=== PATIENT | female | born 1965 | race African-American/Black ===

== ENCOUNTER 2022-11-23 08:39 | Outpatient (REF) | payer BC, SELFPAY ==
[2022-11-23 11:32] LABS: MANUAL DIFF FLAG NO
[2022-11-23 12:05] LABS: Basophils Absolute Auto 0.1 X10*3/uL (0.0-0.2); Eosinophils Absolute Auto 0.2 X10*3/uL (0.0-0.4); Eosinophils Percent Auto 2.5 % (0-4); Hematocrit 40.2 % (37.0-47.0); Imm Gran Abs Auto 0.01 X10*3/uL (0.00-0.03); Imm Gran Pct Auto 0.2 % (0.0-0.4); Lymphocytes Absolute Auto 1.9 X10*3/uL (1.2-4.9); Lymphocytes Percent Auto 31.9 % (20-40); Mean Corpuscular HGB Conc 32.3 g/dl (31.0-35.0); Mean Corpuscular Hemoglobin 28.4 pg (27.0-33.0); Mean Corpuscular Volume 87.8 fL (80.0-98.0); Mean Platelet Volume 10.8 fL (9.4-12.3); Monocytes Absolute Auto 0.4 X10*3/uL (0.1-1.2); Monocytes Percent Auto 6.9 % (2-11); Neutrophils Absolute Auto 3.4 x10*3/uL (2.0-8.3); Neutrophils Percent Auto 57.5 % (45-73); Platelet Count 342 X10*3/uL (160-400); Red Blood Count 4.58 X10*6/uL (4.20-5.50); Red Cell Distribution Width 13.9 % (11.0-16.0)
[2022-11-23 12:26] LABS: B Type Natriuretic Peptide < 10 pg/mL (<100)
[2022-11-23 12:46] LABS: Alanine Aminotransferase 15 U/L (0-31); Albumin Level 4.1 g/dL (3.5-5.0); Alkaline Phosphatase 122 U/L (39-117); Anion Gap 12 (12-20); Aspartate Amino Transferase 20 U/L (5-31); Bilirubin Total 0.5 mg/dL (0.0-1.0); Blood Urea Nitrogen 15 mg/dL (9-16); Calcium 9.2 mg/dL (8.4-10.2); Carbon Dioxide 30 mmol/L (22-29); Chloride 105 mmol/L (96-108); Cholesterol 229 mg/dL; Estimated Glomerular Filt Rate 47; Glucose Fasting 120 mg/dL (60-99); HDL Cholesterol 46 mg/dL; Iron 48 mcg/dL (30-160); LDL Cholesterol Calculated 168 mg/dl; Magnesium 2.4 mg/dL (1.6-2.6); Percent Iron Saturation 17 % (15-50); Potassium 4.6 mmol/L (3.3-5.1); Sodium 142 mmol/L (135-145); Total Iron Binding Capacity 281 mcg/dL (228-428); Total Protein 7.7 g/dL (6.5-8.0); Triglycerides 77 mg/dL; Unsaturated Iron Binding 233 ug/dL
[2022-11-23 12:59] LABS: Folate 10.3 ng/mL (> or = 4.0); TSH reflex Free T4 0.99 uIU/mL (0.32-4.0); Vitamin B12 1598 pg/mL (200-900)
[2022-11-23 17:23] LABS: Estimated Average Glucose 140 mg/dL; Hemoglobin A1c % 6.5 %
[2022-11-26 08:32] LABS: HBS Num1 95.47 mIU/mL (0-7.99); HBc Num1 0.13 S/CO (0.00-0.79); HIV AB/AG Nonreactive (Nonreactive); HIV Num 1 0.06 S/CO (0.00-0.99); Hepatitis B Core Antibody Nonreactive (Nonreactive); Hepatitis B Surface Antigen Negative (Negative); ~HepC Num1 0.22 S/CO (0.00-0.79); ~Hepatitis B Surface Antibody REACTIVE (Nonreactive); ~Hepatitis C Antibody Nonreactive (Nonreactive)
== END 2022-11-23 08:40 | disposition home or self-care (01) ==
LOC: HO.HMGCLDS 08:39
PROVIDERS: PCP Internal Medicine; Visit Provider Internal Medicine
DX: Z00.00 Encounter for general adult medical examination without abnormal findings (principal); R00.0 Tachycardia, unspecified; R05.9 Cough, unspecified; R73.9 Hyperglycemia, unspecified
CPT/HCPCS: 36415; 80053; 80061; 82306; 82607; 82746; 83036; 83540; 83735; 83880; 84443; 85025; 86704; 86706; 86803; 87340; 87389

== ENCOUNTER 2022-12-17 14:36 | Outpatient (REF) | payer BC, SELFPAY ==
--- NOTE | ~2022-12-17 | XR_ITS ---
EXAMINATION: XR CHEST CLINICAL INFORMATION: Cough COMPARISON: None available. TECHNIQUE: 2 views of the chest were obtained. FINDINGS: No significant abnormality is noted involving the heart, lungs, mediastinum, bony thorax or soft tissues. Degenerative changes of the spine. XR/XR chest 2V IMPRESSION: Unremarkable examination.
== END 2022-12-17 14:37 | disposition home or self-care (01) ==
LOC: HO.HMGCX 14:36
PROVIDERS: PCP Internal Medicine; Visit Provider Internal Medicine
DX: R05.9 Cough, unspecified (principal)
CPT/HCPCS: 71046

== ENCOUNTER → 2022-12-31 09:58 | Outpatient (REF) | payer BC, SELFPAY ==
--- NOTE | 2022-12-31 10:00 | CA_ITS ---
Transthoracic Echocardiogram Patient (Last, First, Middle): Alysha Braden, Gender: Female Date of : 1965 Age: 57 Procedure Date: 12/31/2022 Procedure Type: Transthoracic Echocardiogram Location: OP Height: 180.34 cm Weight: 100.7 kg BSA: 2.20 m2 Heart Rate: 97 bpm BP: 120 / 80 mmHg Hardener Helper: MARC Referring MD: Ann Marie Parra MD Symptoms: R00.0 - Tachycardia, unspecified Study Quality: Adequate w contrast ECG Rhythm: Sinus Conclusions: - The left ventricular systolic function is normal. The calculated ejection fraction is 61% by biplane method. - No obvious valvular pathology seen on this study. Findings Procedure Information Contrast agent, definity, is being given per protocol without apparent complications. Left Ventricle Normal left ventricular cavity size. There is normal left ventricular wall thickness. The left ventricular systolic function is normal. The calculated ejection fraction is 61% by biplane method. There is no evidence of regional wall motion abnormalities. Diastolic function is normal for age. Right Ventricle Normal right ventricular cavity size and systolic function. Atria Both atria are normal in size. Aortic Valve The aortic valve was not well visualized. There is no aortic valve stenosis. There is no aortic valve regurgitation. Mitral Valve The mitral valve appears normal. There is trace mitral valve regurgitation. There is no mitral valve stenosis. Pulmonic Valve The pulmonic valve is likely normal. Tricuspid Valve There is no tricuspid valve regurgitation. Tricuspid regurgitation envelope is inadequate for calculation of right ventricular systolic pressure. Great Vessels The asc aorta is normal in size. Venous The inferior vena cava is normal in size and collapses greater than 50% with inspiration. Pericardium/Pleural There is no evidence of pericardial effusion. Prior Study Comparison No prior study available for comparison. Recommendations, Care & Conclusions No obvious valvular pathology seen on this study. Measurements 2D Linear Measurements IVSd: 0.92 0.6-0.9/0.6-1.0 cm LVIDd: 4.21 3.9-5.3/4.2-5.9 cm LVIDd Index: 1.91 2.4-3.2/2.2-3.1 cm/m2 LVIDs: 2.45 2.0-3.6 cm LVPWd: 0.80 0.7-1.1 cm LA Diam: 2.90 2.7-3.8/3.0-4.0 cm LAIDs Index: 1.32 1.5-2.3 cm/m2 LV Mass: 139.49 67-162/88-224 g LV Mass Index: 63.40 43-95/49-115 g/m2 LVOT Diam: 1.80 3.0+(-)1.3 cm 2D Systolic Function EF 4C: 62.90 >55% EF 2C: 60.20 >55% EF BiP: 60.50 >55% Mitral Valve MV Pk E: 0.69 MV PK A: 1.02 MV Decel Time: 155.00 E/A: 0.70 E'Lateral: 7.94 E'Medial: 6.85 E/E' Med: 10.10 E/E' Lat: 8.70 PHT: 45.00 MVA PHT: 4.89 Decel [place]: 4.48 Aortic Valve AoV Pk Bernardo: 1.45 AoV Mn Bernardo: 1.08 AoV VTI: 0.29 AoV Pk Grad: 8.00 Aov Mn Grad: 5.00 COLTEN Cont.VTI: 1.80 LVOT LVOT Pk Bernardo: 1.10 LVOT Mn Bernardo: 0.76 LVOT VTI: 0.20 LVOT Pk Grad: 5.00 LVOT Mn Grad: 3.00 LVOT Diam: 1.80 LVOT Area: 2.54 Diastolic Function MV Pk E: 0.69 MV Pk A: 1.02 E/A: 0.70 E'Medial: 6.85 E/E' Med: 10.10 E' Laterial: 7.94 E/E' Lat: 8.70 Right Ventricle TAPSE (mm): 19.80 TVS' Bernardo: 12.00 Tricuspid Valve RA Press: 3.00 Great Vessels Aorta Sinus of Valsalva: 3.10 2.0-3.5 cm Ao Asc: 3.20 2.1-3.4 cm Pulmonary Valve PV Pk Bernardo: 1.02 Peak PV Grad: 4.00 Updated in Other Vendor System with Status of Final Derick Moralez MD electronically signed on 12/31/2022 11:49:54 AM with status of Final
== END ==
LOC: HO.CARD 09:58
PROVIDERS: PCP Internal Medicine; Visit Provider Internal Medicine
DX: R00.0 Tachycardia, unspecified (principal)
CPT/HCPCS: 93306; Q9957

== ENCOUNTER → 2023-02-13 08:47 | Outpatient (BNVA) | payer BC, SELFPAY | PROVIDERS: PCP Internal Medicine; Visit Provider Dietitian, Registered | DX: R73.9 Hyperglycemia, unspecified (principal); E78.5 Hyperlipidemia, unspecified; Z71.3 Dietary counseling and surveillance | CPT/HCPCS: 97802 ==

== ENCOUNTER 2023-03-06 08:45 | Outpatient (REF) | payer BC, SELFPAY ==
[2023-03-06 11:16] LABS: MANUAL DIFF FLAG NO
[2023-03-06 11:37] LABS: Basophils Absolute Auto 0.1 X10*3/uL (0.0-0.2); Basophils Percent Auto 0.8 % (0-2); Eosinophils Absolute Auto 0.2 X10*3/uL (0.0-0.4); Eosinophils Percent Auto 2.5 % (0-4); Hematocrit 39.1 % (37.0-47.0); Hemoglobin 12.5 g/dl (12.0-16.0); Imm Gran Abs Auto 0.01 X10*3/uL (0.00-0.03); Imm Gran Pct Auto 0.2 % (0.0-0.4); Lymphocytes Percent Auto 33.2 % (20-40); Mean Corpuscular Volume 87.7 fL (80.0-98.0); Mean Platelet Volume 10.9 fL (9.4-12.3); Monocytes Absolute Auto 0.4 X10*3/uL (0.1-1.2); Monocytes Percent Auto 6.3 % (2-11); Neutrophils Absolute Auto 3.4 x10*3/uL (2.0-8.3); Platelet Count 339 X10*3/uL (160-400); Red Blood Count 4.46 X10*6/uL (4.20-5.50); Red Cell Distribution Width 13.8 % (11.0-16.0)
[2023-03-06 11:44] LABS: Estimated Average Glucose 140 mg/dL; Hemoglobin A1c % 6.5 %
[2023-03-06 11:59] LABS: Alanine Aminotransferase 16 U/L (0-31); Albumin Level 3.8 g/dL (3.5-5.0); Alkaline Phosphatase 105 U/L (39-117); Anion Gap 10 (12-20); Aspartate Amino Transferase 18 U/L (5-31); Bilirubin Total 0.5 mg/dL (0.0-1.0); Blood Urea Nitrogen 14 mg/dL (9-16); Calcium 9.1 mg/dL (8.4-10.2); Carbon Dioxide 27 mmol/L (22-29); Chloride 106 mmol/L (96-108); Cholesterol 143 mg/dL; Estimated Glomerular Filt Rate 50; Glucose Fasting 115 mg/dL (60-99); HDL Cholesterol 45 mg/dL; LDL Cholesterol Calculated 85 mg/dl; Potassium 3.8 mmol/L (3.3-5.1); Sodium 139 mmol/L (135-145); Total Protein 7.7 g/dL (6.5-8.0); Triglycerides 66 mg/dL
[2023-03-06 12:06] LABS: Creatinine Urine 257.26 mg/dL; Microalbum/Creatinine Ratio Ur 3.8 ug/mg cr
== END 2023-03-06 08:46 | disposition home or self-care (01) ==
LOC: HO.HMGCLDS 08:45
PROVIDERS: PCP Internal Medicine; Visit Provider Internal Medicine
DX: E78.5 Hyperlipidemia, unspecified (principal); R73.9 Hyperglycemia, unspecified; R00.0 Tachycardia, unspecified
CPT/HCPCS: 36415; 80053; 80061; 82043; 83036; 85025

== ENCOUNTER 2023-03-14 11:13 | Outpatient (AMB) | payer BC, SELFPAY ==
--- NOTE | 2023-03-14 11:14 | A.OFFPC_ITS ---
Vital Signs 03/14/23 11:15 Height 5 ft 11 in Weight 230 lb BMI 32.1 BP 140/90 H Blood Pressure Location Rt brachial Position Sitting Pulse 100 Pulse Source Pulse Oximeter Pulse Oximetry (%) 99 Oxygen Delivery Method Room Air Intake Visit Reasons: Medication Follow Up Allergies No Known Allergies Allergy (Verified 03/14/23 11:15) Tobacco use date assessed: 03/14/23 Dental Screening Dental Screen Date: 03/14/23 Did you have a dental problem in the last 6 months where you did not have access to dental care?: No Was dental information given to patient?: No HPI Medication Follow Up HPI Details Pt presents for f/u hyperlipid, palpitations, hyperglycemia. 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 How often do you have a drink containing alcohol?: Never 3. How often do you have six or more drinks on one occasion?: Never Total Score: 0 Score Reviewed/Action Taken: Yes TAHIRA-7 AMB Questionnaire TAHIRA-7 Date TAHIRA - 7 assessed: 11/23/22 Source: Developed by Drs. Neil Polanco, Michelle Conrad, Kimo Crawford and colleagues, with an educational sabina from [employer]. Review of Systems Const All systems reviewed & are unremarkable except as noted in HPI and below Reports no additional complaints Card Reports no additional complaints Resp Reports no additional complaints GI Reports no additional complaints Physical exam (Primary Care) Vital Signs: Last Vital Signs Pulse 100 03/14/23 11:15 BP 140/90 H 03/14/23 11:15 Pulse Ox 99 03/14/23 11:15 Oxygen Delivery Method Room Air 03/14/23 11:15 BMI result Body Mass Index 32.1 Tobacco/Smoking Status: Tobacco use Status Tobacco use date assessed 03/14/23 03/14/23 11:15 Patient Tobacco Use Status Former Tobacco user 03/14/23 11:15 e-Cigarette/Vaping Use Never Used 03/14/23 11:15 Thrive Assessment: Date of Thrive Assessment Date Thrive assessed 11/23/22 03/14/23 11:15 Const General: no acute distress HENMT Head: Yes normal to inspection Ears: hearing grossly normal bilaterally Resp Effort & Inspection: normal respiratory effort Auscultation: clear to auscultation bilaterally Cardio Rhythm: regular rhythm Heart sounds: S1 normal heart sound present and S2 normal heart sound present Assessment and Plan Assessment & Plan (1) Hyperlipidemia: Code(s): E78.5 - Hyperlipidemia, unspecified Plan: cont Crestor , low cholesterol diet, exercise discussed (2) Hyperglycemia: Comment: A1c at 6.5%on 11/2022 Hyperlipidemia Code(s): R73.9 - Hyperglycemia, unspecified Plan: A1C is 6.5, pt refused meds, will try ADA diet and f/u in 3 mths (3) HTN (hypertension): Code(s): I10 - Essential (primary) hypertension Plan: increase Metoprolol to 50 mg, low Na diet, weight loss Orders: Orders Comprehensive [place]. Panel Fast 3 Months E78.5 - Hyperlipidemia, unspecified, I10 - Essential (primary) hypertension, R73.9 - Hyperglycemia, unspecified Lipid Panel 3 Months E78.5 - Hyperlipidemia, unspecified, I10 - Essential (primary) hypertension, R73.9 - Hyperglycemia, unspecified Hemoglobin A1c 3 Months E78.5 - Hyperlipidemia, unspecified, I10 - Essential (primary) hypertension, R73.9 - Hyperglycemia, unspecified Microalbumin, Random (w Creat) 3 Months E78.5 - Hyperlipidemia, unspecified, I10 - Essential (primary) hypertension, R73.9 - Hyperglycemia, unspecified Vitamin B12 and Folate 3 Months E53.8 - Deficiency of other specified B group vitamins Medications: New metoprolol succinate ER 50 mg PO DAILY 90 tabs 1RF Coding Level of Care Code Est Pt Level 4 (91607) Diagnoses Hyperlipidemia E78.5 Hyperglycemia R73.9 HTN (hypertension) I10
[2023-03-14 11:15] VITALS: BP 140/90; PULSE 100; O2SAT 99; BMI 32.1
== END 2023-03-14 16:19 | disposition home or self-care (01) ==
PROVIDERS: Visit Provider Internal Medicine
DX: E78.5 Hyperlipidemia, unspecified (principal); R73.9 Hyperglycemia, unspecified; I10 Essential (primary) hypertension
CPT/HCPCS: 99214